=== PATIENT | female | born 1980 | race Hispanic/Latino ===

== ENCOUNTER 2023-01-05 11:14 | Outpatient (CLI) | payer OTHER | END 2023-01-05 11:15 | disposition home or self-care (01) | LOC: CSHULT 11:14 | PROVIDERS: ATTEND Advanced Practice Midwife | DX: N94.89 Other specified conditions associated with female genital organs and menstrual cycle (principal); D28.7 Benign neoplasm of other specified female genital organs | CPT/HCPCS: 76856 ==